=== PATIENT | female | born 1940 | race Asian ===

== ENCOUNTER 2017-12-16 18:40 | Inpatient (IN) | payer MEDICARE, OTHER ==
[2017-12-16 20:07] LABS: ADD MAN DIFF? NO
[2017-12-16 20:11] LABS: WHITE BLOOD COUNT 15.9 10^3/ul (4.8-10.8)
[2017-12-16 20:11] LABS: ABNORMAL IP MESSAGE 1; BASOPHIL # 0.1 10^3/ul (0.0-0.1); BASOPHILS % 0.6 % (0.0-2.0); EOSINOPHILS # 0.3 10^3/ul (0.0-0.5); EOSINOPHILS % 1.6 % (0.0-7.0); HEMATOCRIT 32.4 % (37.0-47.0); HEMOGLOBIN 10.1 g/dl (12.0-16.0); LYMPHOCYTES # 6.1 10^3/ul (0.8-2.9); LYMPHOCYTES % 38.4 % (15.0-51.0); MEAN CORPUSCULAR HEMOGLOBIN 28.2 pg (29.0-33.0); MEAN CORPUSCULAR HGB CONC 31.2 g/dl (32.0-37.0); MEAN CORPUSCULAR VOLUME 90.5 fl (82.0-101.0); MEAN PLATELET VOLUME 10.1 fl (7.4-10.4); MONOCYTES % 6.5 % (0.0-11.0); NEUTROPHIL # 8.3 10^3/ul (1.6-7.5); NEUTROPHILS % 52.5 % (39.0-77.0); PLATELET COUNT 408 10^3/UL (140-415); RED BLOOD COUNT 3.58 10^6/ul (4.20-5.40); RED CELL DISTRIBUTION WIDTH 14.3 % (11.5-14.5)
[2017-12-16 20:22] LABS: POSITIVE DIFF @See below
[2017-12-16 20:26] LABS: ALANINE AMINOTRANSFERASE 20 IU/L (13-69); ALBUMIN 2.9 g/dl (3.3-4.9); ALBUMIN/GLOBULIN RATIO 0.76; ALKALINE PHOSPHATASE 568 IU/L (42-121); ANION GAP 12 (8-16); ASPARTATE AMINO TRANSFERASE 42 IU/L (15-46); BILIRUBIN,INDIRECT 0.1 mg/dl (0-1.1); BILIRUBIN,TOTAL 0.1 mg/dl (0.2-1.3); BLOOD UREA NITROGEN 8 mg/dl (7-20); CALCIUM 8.3 mg/dl (8.4-10.2); CARBON DIOXIDE 29 mmol/L (21-31); CHLORIDE 105 mmol/L (97-110); CREATININE 0.73 mg/dl (0.44-1.00); GLUCOSE 134 mg/dl (70-220); INR 1.07; LIPASE 57 U/L (23-300); POTASSIUM 3.5 mmol/L (3.5-5.1); PT RATIO 1.1; SODIUM 142 mmol/L (135-144); TOTAL PROTEIN 6.7 g/dl (6.1-8.1)
[2017-12-16 20:27] LABS: PARTIAL THROMBOPLASTIN TIME 28.9 Sec (25.0-35.0)
[2017-12-16 20:28] LABS: LACTIC ACID 2.1 mmol/L (0.5-2.0)
[2017-12-16 20:29] LABS: ADD UMIC YES; UR ASCORBIC ACID NEGATIVE (NEGATIVE); UR BILIRUBIN (Dip) NEGATIVE (NEGATIVE); UR BLOOD (Dip) 1+ mg/dL (NEGATIVE); UR CLARITY CLEAR (CLEAR); UR COLOR YELLOW (YELLOW); UR GLUCOSE (Dip) NEGATIVE (NEGATIVE); UR KETONES (Dip) NEGATIVE (NEGATIVE); UR LEUKOCYTE ESTERASE (Dip) NEGATIVE Leu/ul (NEGATIVE); UR NITRITE (Dip) NEGATIVE (NEGATIVE); UR RBC 5 /HPF (0-5); UR SPECIFIC GRAVITY (Dip) 1.008 (1.003-1.030); UR TOTAL PROTEIN (Dip) NEGATIVE (NEGATIVE); UR UROBILINOGEN (Dip) NEGATIVE (NEGATIVE); UR WBC 2 /HPF (0-5)
[2017-12-16] MEDS: SODIUM CHLORIDE 0.9% 1L BAG IV* (20:35)
[2017-12-16 20:38] LABS: TROPONIN-I < 0.012 ng/ml (0.00-0.12)
[2017-12-16] MEDS: CEFEPIME 1GM/50 ML (PMX) 50 ML IVPB (20:48)
[2017-12-16] MEDS: IBUPROFEN 600 MG TAB PO (20:49)
[2017-12-16] MEDS: VANCOMYCIN 1 GM (PMX) 250 ML IVPB (21:06)
[2017-12-16 21:42] LABS: LACTIC ACID 1.3 mmol/L (0.5-2.0)
[2017-12-17] MEDS ORDERED: ACETAMINOPHEN 325 MG TAB PO
[2017-12-17] MEDS: HYDROCODONE/APAP (5/325) TAB PO
[2017-12-17] MEDS ORDERED: BISACODYL (EC) 5 MG TAB PO
[2017-12-17] MEDS ORDERED: VANCOMYCIN IV PER PHARMACY XX
[2017-12-17 00:54] LABS: LACTIC ACID 0.8 mmol/L (0.5-2.0)
[2017-12-17] MEDS ORDERED: DEXTROSE 50% 50 ML SYRINGE IV ×2 (01:00)
[2017-12-17] MEDS ORDERED: GLUCAGON 1 MG INJ IM (01:00)
[2017-12-17] MEDS ORDERED: GLUCOSE GEL 15 GRAM TUBE PO ×2 (01:00)
[2017-12-17] MEDS ORDERED: GLUCOSE GEL 15 GRAM TUBE BUCCAL (01:00)
[2017-12-17] MEDS ORDERED: ACETAMINOPHEN 500 MG TAB PO ×2 (01:00)
[2017-12-17] MEDS: ACCU-CHEK XX (02:00)
[2017-12-17] MEDS: PANTOPRAZOLE (EC) 40 MG TAB PO (06:04)
[2017-12-17 06:42] LABS: ADD MAN DIFF? NO
[2017-12-17 06:49] LABS: ABNORMAL IP MESSAGE 1; BASOPHIL # 0.1 10^3/ul (0.0-0.1); BASOPHILS % 0.8 % (0.0-2.0); EOSINOPHILS # 0.3 10^3/ul (0.0-0.5); EOSINOPHILS % 1.9 % (0.0-7.0); HEMATOCRIT 32.9 % (37.0-47.0); HEMOGLOBIN 10.1 g/dl (12.0-16.0); LYMPHOCYTES # 5.8 10^3/ul (0.8-2.9); MEAN CORPUSCULAR HEMOGLOBIN 28.1 pg (29.0-33.0); MEAN CORPUSCULAR HGB CONC 30.7 g/dl (32.0-37.0); MEAN CORPUSCULAR VOLUME 91.6 fl (82.0-101.0); MEAN PLATELET VOLUME 10.4 fl (7.4-10.4); MONOCYTE # 0.8 10^3/ul (0.3-0.9); MONOCYTES % 5.8 % (0.0-11.0); NEUTROPHIL # 7.1 10^3/ul (1.6-7.5); NEUTROPHILS % 50.2 % (39.0-77.0); PLATELET COUNT 364 10^3/UL (140-415); RED BLOOD COUNT 3.59 10^6/ul (4.20-5.40); RED CELL DISTRIBUTION WIDTH 14.4 % (11.5-14.5)
[2017-12-17 06:54] LABS: POSITIVE DIFF @See below
[2017-12-17 07:13] LABS: PROTIME 14.4 Sec (11.9-14.9); PT RATIO 1.1
[2017-12-17 07:50] LABS: ALANINE AMINOTRANSFERASE 19 IU/L (13-69); ALBUMIN 2.8 g/dl (3.3-4.9); ALBUMIN/GLOBULIN RATIO 0.73; ALKALINE PHOSPHATASE 518 IU/L (42-121); ANION GAP 14 (8-16); ASPARTATE AMINO TRANSFERASE 40 IU/L (15-46); BILIRUBIN,INDIRECT 0.1 mg/dl (0-1.1); BILIRUBIN,TOTAL 0.1 mg/dl (0.2-1.3); BLOOD UREA NITROGEN 8 mg/dl (7-20); CALCIUM 8.4 mg/dl (8.4-10.2); CARBON DIOXIDE 27 mmol/L (21-31); CHLORIDE 108 mmol/L (97-110); CREATININE 0.68 mg/dl (0.44-1.00); GLUCOSE 152 mg/dl (70-220); POTASSIUM 3.2 mmol/L (3.5-5.1); SODIUM 146 mmol/L (135-144); TOTAL PROTEIN 6.6 g/dl (6.1-8.1)
[2017-12-17] MEDS: INSULIN ASPART [NOVOLOG] 3 ML PEN SC ×4 (08:00→20:33)
[2017-12-17] MEDS: GABAPENTIN 300 MG CAP PO ×3 (08:12→20:32)
[2017-12-17] MEDS: FOLIC ACID 1 MG TAB PO (08:12)
[2017-12-17] MEDS: MAGNESIUM HYDROXIDE 30ML CUP PO (08:12)
[2017-12-17] MEDS: FERROUS SULFATE (EC) 325 MG TAB PO ×2 (08:12→20:33)
[2017-12-17] MEDS: VANCOMYCIN 1 GM 250 ML IVPB ×2 (08:12→19:59)
[2017-12-17] MEDS: NACL 3% FOR INHALATION 15 ML NEBU NEB (11:30)
[2017-12-17] MEDS: DEXTROSE 5% 1,000 ML IV (11:30)
[2017-12-17] MEDS: POTASSIUM CHLORIDE (SR) 20 MEQ TAB PO (12:51)
[2017-12-17] MEDS: DEXTROSE 5% 500 ML IV ×2 (14:25→23:18)
[2017-12-18] MEDS: ACCU-CHEK XX (02:00)
[2017-12-18] MEDS: DEXTROSE 5% 500 ML IV (05:45)
[2017-12-18] MEDS: PANTOPRAZOLE (EC) 40 MG TAB PO (05:46)
[2017-12-18 07:52] LABS: ADD MAN DIFF? NO
[2017-12-18 08:02] LABS: WHITE BLOOD COUNT 12.8 10^3/ul (4.8-10.8)
[2017-12-18 08:02] LABS: ABNORMAL IP MESSAGE 1; BASOPHIL # 0.1 10^3/ul (0.0-0.1); BASOPHILS % 0.8 % (0.0-2.0); EOSINOPHILS # 0.3 10^3/ul (0.0-0.5); EOSINOPHILS % 2.7 % (0.0-7.0); HEMATOCRIT 33.7 % (37.0-47.0); HEMOGLOBIN 10.5 g/dl (12.0-16.0); LYMPHOCYTES % 39.3 % (15.0-51.0); MEAN CORPUSCULAR HEMOGLOBIN 28.2 pg (29.0-33.0); MEAN CORPUSCULAR HGB CONC 31.2 g/dl (32.0-37.0); MEAN CORPUSCULAR VOLUME 90.6 fl (82.0-101.0); MEAN PLATELET VOLUME 10.2 fl (7.4-10.4); MONOCYTE # 0.9 10^3/ul (0.3-0.9); MONOCYTES % 6.8 % (0.0-11.0); NEUTROPHIL # 6.4 10^3/ul (1.6-7.5); NEUTROPHILS % 50.1 % (39.0-77.0); PLATELET COUNT 351 10^3/UL (140-415); RED BLOOD COUNT 3.72 10^6/ul (4.20-5.40); RED CELL DISTRIBUTION WIDTH 14.3 % (11.5-14.5)
[2017-12-18 08:05] LABS: POSITIVE DIFF @See below
[2017-12-18 08:22] LABS: INR 1.02; PROTIME 13.5 Sec (11.9-14.9); PT RATIO 1.1
[2017-12-18 08:23] LABS: ALANINE AMINOTRANSFERASE 22 IU/L (13-69); ALBUMIN 2.8 g/dl (3.3-4.9); ALBUMIN/GLOBULIN RATIO 0.73; ALKALINE PHOSPHATASE 498 IU/L (42-121); ANION GAP 13 (8-16); ASPARTATE AMINO TRANSFERASE 38 IU/L (15-46); BILIRUBIN,INDIRECT 0.2 mg/dl (0-1.1); BILIRUBIN,TOTAL 0.2 mg/dl (0.2-1.3); BLOOD UREA NITROGEN 6 mg/dl (7-20); CALCIUM 8.5 mg/dl (8.4-10.2); CARBON DIOXIDE 28 mmol/L (21-31); CHLORIDE 104 mmol/L (97-110); CREATININE 0.62 mg/dl (0.44-1.00); GLUCOSE 157 mg/dl (70-220); POTASSIUM 3.1 mmol/L (3.5-5.1); SODIUM 142 mmol/L (135-144); TOTAL PROTEIN 6.6 g/dl (6.1-8.1)
[2017-12-18 08:25] LABS: VANCOMYCIN,TROUGH 12.3 ug/ml (10.0-20.0)
[2017-12-18] MEDS: INSULIN ASPART [NOVOLOG] 3 ML PEN SC ×4 (08:34→20:41)
[2017-12-18] MEDS: FOLIC ACID 1 MG TAB PO (08:35)
[2017-12-18] MEDS: POTASSIUM CHLORIDE (SR) 20 MEQ TAB PO (08:35)
[2017-12-18] MEDS: GABAPENTIN 300 MG CAP PO ×3 (08:35→22:14)
[2017-12-18] MEDS: FERROUS SULFATE (EC) 325 MG TAB PO ×2 (08:35→22:12)
[2017-12-18] MEDS: MAGNESIUM HYDROXIDE 30ML CUP PO (08:36)
[2017-12-18 09:29] LABS: BLOOD UREA NITROGEN 6 mg/dl (7-20)
[2017-12-18 09:29] LABS: CREATININE 0.59 mg/dl (0.44-1.00)
[2017-12-18] MEDS: VANCOMYCIN 1 GM 250 ML IVPB ×2 (09:32→20:37)
[2017-12-18] MEDS: INFLUENZA VIRUS VACCINE 0.5 ML (DISPENSING) IM* (09:35)
[2017-12-18] MEDS: D5W-0.45 NACL + KCL 40 MEQ 1,000 ML IV (16:41)
[2017-12-19] MEDS: INSULIN ASPART [NOVOLOG] 3 ML PEN SC ×6 (01:38→21:26)
[2017-12-19] MEDS: PANTOPRAZOLE (EC) 40 MG TAB PO (05:11)
[2017-12-19] MEDS ORDERED: MEPERIDINE 25 MG INJ IV (06:00)
[2017-12-19] MEDS ORDERED: OXYCODONE/ACETAMINOPHEN (5/325) TAB PO ×2 (06:00)
[2017-12-19] MEDS ORDERED: ONDANSETRON 4 MG INJ IV (06:00)
[2017-12-19] MEDS ORDERED: hydrALAzine 20 MG INJ IV (06:00)
[2017-12-19] MEDS ORDERED: MIDAZOLAM 1 MG/ML 2 ML INJ IV (06:00)
[2017-12-19] MEDS ORDERED: DIPHENHYDRAMINE 50 MG INJ IV (06:00)
[2017-12-19] MEDS ORDERED: ATROPINE 1 MG/10 ML SYRINGE IV (06:00)
[2017-12-19] MEDS ORDERED: LABETALOL HCL 20MG INJ IV (06:00)
[2017-12-19] MEDS ORDERED: EPHEDrine SULFATE 50 MG/5 ML SYG IV (06:00)
[2017-12-19] MEDS ORDERED: morphine (1 MG/ML) 10ML SYRINGE IV ×3 (06:00)
[2017-12-19] MEDS ORDERED: FENTAnyl 50 MCG/ML VIAL IV ×2 (06:00)
[2017-12-19] MEDS ORDERED: HYDROmorphONE (0.2 MG/ML) 10ML SYG IV ×3 (06:00)
[2017-12-19 07:18] LABS: ADD MAN DIFF? NO
[2017-12-19 07:44] LABS: INR 1.03; PROTIME 13.6 Sec (11.9-14.9); PT RATIO 1.1
[2017-12-19 07:49] LABS: ANION GAP 14 (8-16); BLOOD UREA NITROGEN 8 mg/dl (7-20); CALCIUM 8.8 mg/dl (8.4-10.2); CARBON DIOXIDE 30 mmol/L (21-31); CHLORIDE 107 mmol/L (97-110); CREATININE 0.77 mg/dl (0.44-1.00); GLUCOSE 121 mg/dl (70-220); POTASSIUM 3.7 mmol/L (3.5-5.1); SODIUM 147 mmol/L (135-144)
[2017-12-19 08:12] LABS: WHITE BLOOD COUNT 16.5 10^3/ul (4.8-10.8)
[2017-12-19 08:12] LABS: ABNORMAL IP MESSAGE 1; BASOPHIL # 0.1 10^3/ul (0.0-0.1); BASOPHILS % 0.9 % (0.0-2.0); EOSINOPHILS # 0.5 10^3/ul (0.0-0.5); HEMATOCRIT 37.4 % (37.0-47.0); HEMOGLOBIN 11.6 g/dl (12.0-16.0); LYMPHOCYTES # 7.4 10^3/ul (0.8-2.9); LYMPHOCYTES % 45.2 % (15.0-51.0); MEAN CORPUSCULAR HEMOGLOBIN 28.2 pg (29.0-33.0); MEAN CORPUSCULAR VOLUME 90.8 fl (82.0-101.0); MEAN PLATELET VOLUME 10.3 fl (7.4-10.4); MONOCYTES % 6.3 % (0.0-11.0); NEUTROPHIL # 7.3 10^3/ul (1.6-7.5); NEUTROPHILS % 44.2 % (39.0-77.0); PLATELET COUNT 409 10^3/UL (140-415); RED BLOOD COUNT 4.12 10^6/ul (4.20-5.40); RED CELL DISTRIBUTION WIDTH 14.3 % (11.5-14.5)
[2017-12-19 08:13] LABS: POSITIVE DIFF @See below
[2017-12-19] MEDS: FOLIC ACID 1 MG TAB PO (08:53)
[2017-12-19] MEDS: FERROUS SULFATE (EC) 325 MG TAB PO ×2 (08:53→21:08)
[2017-12-19] MEDS: GABAPENTIN 300 MG CAP PO ×3 (08:53→21:08)
[2017-12-19] MEDS: POTASSIUM CHLORIDE (SR) 20 MEQ TAB PO (08:53)
[2017-12-19] MEDS: MAGNESIUM HYDROXIDE 30ML CUP PO (08:53)
[2017-12-19] MEDS: VANCOMYCIN 1 GM 250 ML IVPB (08:54)
[2017-12-19] MEDS: D5W-0.45 NACL + KCL 40 MEQ 1,000 ML IV (09:10)
[2017-12-19] MEDS ORDERED: PROPOFOL 20 ML (11:30)
[2017-12-19] MEDS ORDERED: MIDAZOLAM 1 MG/ML 2 ML INJ (11:30)
[2017-12-19] MEDS ORDERED: GLYCOPYRROLATE 0.4 MG INJ (11:30)
[2017-12-19] MEDS ORDERED: LIDOCAINE 2% (SDV) 5 ML INJ (11:30)
[2017-12-19] MEDS ORDERED: NEOSTIGMINE 3 MG/3 ML SYRINGE (11:30)
[2017-12-19] MEDS ORDERED: ROCURONIUM 50 MG INJ (11:30)
[2017-12-19] MEDS ORDERED: FENTAnyl 50 MCG/ML VIAL (11:30)
[2017-12-19] MEDS ORDERED: DEXAMETHASONE 4 MG/ML 1 ML INJ (11:31)
[2017-12-19] MEDS ORDERED: ONDANSETRON 4 MG INJ ×2 (11:31→12:57)
[2017-12-19] MEDS ORDERED: FLUMAZENIL 0.5 MG INJ (14:26)
[2017-12-19] MEDS ORDERED: CIPROFLOXACIN 400MG/D5W 200 ML IVPB (21:00)
[2017-12-19] MEDS: CIPROFLOXACIN 400MG/D5W 200 ML IVPB (21:06)
[2017-12-19] MEDS: CEFEPIME 2GM/50 ML (PMX) 50 ML IVPB (21:06)
[2017-12-20] MEDS: INSULIN ASPART [NOVOLOG] 3 ML PEN SC ×6 (01:33→21:00)
[2017-12-20] MEDS: PANTOPRAZOLE (EC) 40 MG TAB PO (04:01)
[2017-12-20] MEDS: D5W-0.45 NACL + KCL 40 MEQ 1,000 ML IV ×2 (05:58→18:30)
[2017-12-20] MEDS: FERROUS SULFATE (EC) 325 MG TAB PO ×2 (08:43→22:39)
[2017-12-20] MEDS: FOLIC ACID 1 MG TAB PO (08:43)
[2017-12-20] MEDS: GABAPENTIN 300 MG CAP PO ×3 (08:44→22:39)
[2017-12-20] MEDS: MAGNESIUM HYDROXIDE 30ML CUP PO (08:44)
[2017-12-20] MEDS: POTASSIUM CHLORIDE (SR) 20 MEQ TAB PO (08:44)
[2017-12-20] MEDS: CEFEPIME 2GM/50 ML (PMX) 50 ML IVPB ×2 (09:27→22:39)
[2017-12-20 12:36] LABS: ADD MAN DIFF? NO
[2017-12-20 12:44] LABS: WHITE BLOOD COUNT 13.9 10^3/ul (4.8-10.8)
[2017-12-20 12:44] LABS: BASOPHILS % 0.2 % (0.0-2.0); EOSINOPHILS % 0.1 % (0.0-7.0); HEMATOCRIT 32.3 % (37.0-47.0); HEMOGLOBIN 10.2 g/dl (12.0-16.0); LYMPHOCYTES # 4.6 10^3/ul (0.8-2.9); LYMPHOCYTES % 33.4 % (15.0-51.0); MEAN CORPUSCULAR HEMOGLOBIN 28.3 pg (29.0-33.0); MEAN CORPUSCULAR HGB CONC 31.6 g/dl (32.0-37.0); MEAN CORPUSCULAR VOLUME 89.5 fl (82.0-101.0); MEAN PLATELET VOLUME 9.9 fl (7.4-10.4); MONOCYTE # 0.8 10^3/ul (0.3-0.9); MONOCYTES % 5.8 % (0.0-11.0); NEUTROPHIL # 8.3 10^3/ul (1.6-7.5); NEUTROPHILS % 59.9 % (39.0-77.0); PLATELET COUNT 354 10^3/UL (140-415); RED BLOOD COUNT 3.61 10^6/ul (4.20-5.40); RED CELL DISTRIBUTION WIDTH 13.6 % (11.5-14.5)
[2017-12-20 13:01] LABS: ALANINE AMINOTRANSFERASE 22 IU/L (13-69); ALBUMIN 2.9 g/dl (3.3-4.9); ALBUMIN/GLOBULIN RATIO 0.74; ALKALINE PHOSPHATASE 499 IU/L (42-121); ANION GAP 15 (8-16); ASPARTATE AMINO TRANSFERASE 29 IU/L (15-46); BILIRUBIN,INDIRECT 0.1 mg/dl (0-1.1); BILIRUBIN,TOTAL 0.1 mg/dl (0.2-1.3); BLOOD UREA NITROGEN 11 mg/dl (7-20); CALCIUM 8.5 mg/dl (8.4-10.2); CARBON DIOXIDE 26 mmol/L (21-31); CHLORIDE 107 mmol/L (97-110); CREATININE 0.72 mg/dl (0.44-1.00); GLUCOSE 141 mg/dl (70-220); POTASSIUM 3.8 mmol/L (3.5-5.1); SODIUM 144 mmol/L (135-144); TOTAL PROTEIN 6.8 g/dl (6.1-8.1)
[2017-12-20] MEDS ORDERED: LIDOCAINE 1% (MDV) 20 ML INJ (15:42)
[2017-12-20] MEDS: SOD CHLORIDE 0.9% 100 ML (17:52)
[2017-12-20] MEDS: IOHEXOL 300MG/ML 150 ML BTL (17:52)
[2017-12-20 19:31] LABS: HEMOGLOBIN A1C 5.6 % (0-5.9)
[2017-12-20] MEDS ORDERED: ACCU-CHEK XX (20:05)
[2017-12-21] MEDS: ACCU-CHEK XX (02:00)
[2017-12-21] MEDS: PANTOPRAZOLE (EC) 40 MG TAB PO (05:38)
[2017-12-21] MEDS: D5W-0.45 NACL + KCL 40 MEQ 1,000 ML IV (05:39)
[2017-12-21 06:13] LABS: ADD MAN DIFF? NO
[2017-12-21 06:18] LABS: ABNORMAL IP MESSAGE 1; BASOPHIL # 0.1 10^3/ul (0.0-0.1); BASOPHILS % 0.8 % (0.0-2.0); EOSINOPHILS # 0.2 10^3/ul (0.0-0.5); EOSINOPHILS % 1.9 % (0.0-7.0); HEMATOCRIT 33.8 % (37.0-47.0); HEMOGLOBIN 10.4 g/dl (12.0-16.0); LYMPHOCYTES # 5.2 10^3/ul (0.8-2.9); LYMPHOCYTES % 41.8 % (15.0-51.0); MEAN CORPUSCULAR HEMOGLOBIN 27.8 pg (29.0-33.0); MEAN CORPUSCULAR HGB CONC 30.8 g/dl (32.0-37.0); MEAN CORPUSCULAR VOLUME 90.4 fl (82.0-101.0); MEAN PLATELET VOLUME 10.2 fl (7.4-10.4); MONOCYTES % 7.9 % (0.0-11.0); NEUTROPHIL # 5.9 10^3/ul (1.6-7.5); NEUTROPHILS % 47.4 % (39.0-77.0); PLATELET COUNT 373 10^3/UL (140-415); RED BLOOD COUNT 3.74 10^6/ul (4.20-5.40); RED CELL DISTRIBUTION WIDTH 13.9 % (11.5-14.5)
[2017-12-21 06:18] LABS: WHITE BLOOD COUNT 12.4 10^3/ul (4.8-10.8)
[2017-12-21 06:20] LABS: POSITIVE DIFF @See below
[2017-12-21 06:40] LABS: ALANINE AMINOTRANSFERASE 21 IU/L (13-69); ALBUMIN 3.1 g/dl (3.3-4.9); ALBUMIN/GLOBULIN RATIO 0.86; ALKALINE PHOSPHATASE 459 IU/L (42-121); ANION GAP 15 (8-16); ASPARTATE AMINO TRANSFERASE 52 IU/L (15-46); BLOOD UREA NITROGEN 10 mg/dl (7-20); CALCIUM 8.5 mg/dl (8.4-10.2); CARBON DIOXIDE 27 mmol/L (21-31); CHLORIDE 109 mmol/L (97-110); CREATININE 0.68 mg/dl (0.44-1.00); GLUCOSE 118 mg/dl (70-220); POTASSIUM 3.3 mmol/L (3.5-5.1); SODIUM 148 mmol/L (135-144); TOTAL PROTEIN 6.7 g/dl (6.1-8.1)
[2017-12-21 07:07] LABS: CARCINOEMBRYONIC ANTIGEN 1.8 ng/ml (0.0-5.0)
[2017-12-21 07:07] LABS: CANCER ANTIGEN 125 26.9 U/ml (0.0-35.0)
[2017-12-21] MEDS: INSULIN ASPART [NOVOLOG] 3 ML PEN SC ×4 (08:06→20:22)
[2017-12-21] MEDS: MAGNESIUM HYDROXIDE 30ML CUP PO (09:52)
[2017-12-21] MEDS: CEFEPIME 2GM/50 ML (PMX) 50 ML IVPB ×2 (09:52→20:23)
[2017-12-21] MEDS: POTASSIUM CHLORIDE (SR) 20 MEQ TAB PO (09:53)
[2017-12-21] MEDS: FOLIC ACID 1 MG TAB PO (09:53)
[2017-12-21] MEDS: FERROUS SULFATE (EC) 325 MG TAB PO ×2 (09:53→20:23)
[2017-12-21] MEDS: GABAPENTIN 300 MG CAP PO ×3 (09:53→20:23)
[2017-12-21] MEDS ORDERED: POTASSIUM CHLORIDE (SR) 20 MEQ TAB PO (14:30)
[2017-12-22] MEDS: ACCU-CHEK XX (01:05)
[2017-12-22] MEDS: D5W-0.45 NACL + KCL 40 MEQ 1,000 ML IV ×2 (03:12→09:12)
[2017-12-22 05:12] LABS: ADD MAN DIFF? NO
[2017-12-22 05:22] LABS: WHITE BLOOD COUNT 13.3 10^3/ul (4.8-10.8)
[2017-12-22 05:22] LABS: ABNORMAL IP MESSAGE 1; BASOPHIL # 0.1 10^3/ul (0.0-0.1); EOSINOPHILS # 0.3 10^3/ul (0.0-0.5); EOSINOPHILS % 2.4 % (0.0-7.0); HEMATOCRIT 33.6 % (37.0-47.0); HEMOGLOBIN 10.7 g/dl (12.0-16.0); LYMPHOCYTES % 45.1 % (15.0-51.0); MEAN CORPUSCULAR HEMOGLOBIN 28.8 pg (29.0-33.0); MEAN CORPUSCULAR HGB CONC 31.8 g/dl (32.0-37.0); MEAN CORPUSCULAR VOLUME 90.6 fl (82.0-101.0); MEAN PLATELET VOLUME 10.1 fl (7.4-10.4); MONOCYTES % 7.4 % (0.0-11.0); NEUTROPHIL # 5.9 10^3/ul (1.6-7.5); NEUTROPHILS % 43.9 % (39.0-77.0); PLATELET COUNT 384 10^3/UL (140-415); RED BLOOD COUNT 3.71 10^6/ul (4.20-5.40); RED CELL DISTRIBUTION WIDTH 14.3 % (11.5-14.5)
[2017-12-22 06:09] LABS: ALANINE AMINOTRANSFERASE 16 IU/L (13-69); ALBUMIN 3.2 g/dl (3.3-4.9); ALBUMIN/GLOBULIN RATIO 0.84; ALKALINE PHOSPHATASE 490 IU/L (42-121); ANION GAP 14 (8-16); ASPARTATE AMINO TRANSFERASE 53 IU/L (15-46); BLOOD UREA NITROGEN 10 mg/dl (7-20); CARBON DIOXIDE 28 mmol/L (21-31); CHLORIDE 107 mmol/L (97-110); CREATININE 0.83 mg/dl (0.44-1.00); GLUCOSE 137 mg/dl (70-220); POTASSIUM 3.9 mmol/L (3.5-5.1); SODIUM 145 mmol/L (135-144)
[2017-12-22 06:12] LABS: POSITIVE DIFF @See below
[2017-12-22] MEDS: PANTOPRAZOLE (EC) 40 MG TAB PO (06:29)
[2017-12-22] MEDS: FOLIC ACID 1 MG TAB PO (08:28)
[2017-12-22] MEDS: INSULIN ASPART [NOVOLOG] 3 ML PEN SC ×4 (08:28→20:41)
[2017-12-22] MEDS: MAGNESIUM HYDROXIDE 30ML CUP PO (08:28)
[2017-12-22] MEDS: FERROUS SULFATE (EC) 325 MG TAB PO ×2 (08:28→20:42)
[2017-12-22] MEDS: GABAPENTIN 300 MG CAP PO ×3 (08:28→20:42)
[2017-12-22] MEDS: POTASSIUM CHLORIDE (SR) 20 MEQ TAB PO (08:31)
[2017-12-22] MEDS: CEFEPIME 2GM/50 ML (PMX) 50 ML IVPB ×2 (08:32→20:42)
[2017-12-23] MEDS: ACCU-CHEK XX (01:13)
[2017-12-23] MEDS: D5W-0.45 NACL + KCL 40 MEQ 1,000 ML IV (04:38)
[2017-12-23] MEDS: PANTOPRAZOLE (EC) 40 MG TAB PO (05:27)
[2017-12-23 06:06] LABS: ADD MAN DIFF? NO
[2017-12-23 06:14] LABS: ABNORMAL IP MESSAGE 1; BASOPHIL # 0.1 10^3/ul (0.0-0.1); EOSINOPHILS # 0.4 10^3/ul (0.0-0.5); EOSINOPHILS % 2.8 % (0.0-7.0); HEMATOCRIT 36.1 % (37.0-47.0); HEMOGLOBIN 11.2 g/dl (12.0-16.0); LYMPHOCYTES # 5.5 10^3/ul (0.8-2.9); LYMPHOCYTES % 41.3 % (15.0-51.0); MEAN CORPUSCULAR HEMOGLOBIN 27.9 pg (29.0-33.0); MEAN PLATELET VOLUME 10.2 fl (7.4-10.4); MONOCYTE # 0.9 10^3/ul (0.3-0.9); MONOCYTES % 6.9 % (0.0-11.0); NEUTROPHIL # 6.4 10^3/ul (1.6-7.5); NEUTROPHILS % 47.5 % (39.0-77.0); PLATELET COUNT 389 10^3/UL (140-415); RED BLOOD COUNT 4.01 10^6/ul (4.20-5.40); RED CELL DISTRIBUTION WIDTH 14.2 % (11.5-14.5)
[2017-12-23 06:14] LABS: WHITE BLOOD COUNT 13.3 10^3/ul (4.8-10.8)
[2017-12-23 06:33] LABS: POSITIVE DIFF @See below
[2017-12-23 07:04] LABS: ANION GAP 16 (8-16); BLOOD UREA NITROGEN 11 mg/dl (7-20); CALCIUM 9.3 mg/dl (8.4-10.2); CARBON DIOXIDE 28 mmol/L (21-31); CHLORIDE 105 mmol/L (97-110); CREATININE 0.71 mg/dl (0.44-1.00); GLUCOSE 162 mg/dl (70-220); POTASSIUM 4.1 mmol/L (3.5-5.1); SODIUM 145 mmol/L (135-144)
[2017-12-23] MEDS: FERROUS SULFATE (EC) 325 MG TAB PO ×2 (08:22→20:37)
[2017-12-23] MEDS: FOLIC ACID 1 MG TAB PO (08:22)
[2017-12-23] MEDS: GABAPENTIN 300 MG CAP PO ×3 (08:22→20:37)
[2017-12-23] MEDS: POTASSIUM CHLORIDE (SR) 20 MEQ TAB PO (08:22)
[2017-12-23] MEDS: INSULIN ASPART [NOVOLOG] 3 ML PEN SC ×4 (08:23→20:36)
[2017-12-23] MEDS: MAGNESIUM HYDROXIDE 30ML CUP PO (08:27)
[2017-12-23] MEDS: CEFEPIME 2GM/50 ML (PMX) 50 ML IVPB ×2 (08:27→20:37)
[2017-12-24] MEDS: SOD CHLORIDE 0.45% 1,000 ML IV ×2 (00:02→16:38)
[2017-12-24] MEDS: ACCU-CHEK XX (01:32)
[2017-12-24] MEDS: PANTOPRAZOLE (EC) 40 MG TAB PO (05:54)
[2017-12-24 05:57] LABS: ADD MAN DIFF? NO
[2017-12-24 06:06] LABS: ABNORMAL IP MESSAGE 1; BASOPHIL # 0.1 10^3/ul (0.0-0.1); BASOPHILS % 0.9 % (0.0-2.0); EOSINOPHILS # 0.4 10^3/ul (0.0-0.5); EOSINOPHILS % 2.9 % (0.0-7.0); HEMOGLOBIN 11.8 g/dl (12.0-16.0); LYMPHOCYTES # 6.4 10^3/ul (0.8-2.9); LYMPHOCYTES % 42.5 % (15.0-51.0); MEAN CORPUSCULAR HEMOGLOBIN 27.9 pg (29.0-33.0); MEAN CORPUSCULAR HGB CONC 31.1 g/dl (32.0-37.0); MEAN CORPUSCULAR VOLUME 89.8 fl (82.0-101.0); MEAN PLATELET VOLUME 10.2 fl (7.4-10.4); MONOCYTE # 0.9 10^3/ul (0.3-0.9); MONOCYTES % 6.2 % (0.0-11.0); NEUTROPHIL # 7.1 10^3/ul (1.6-7.5); NEUTROPHILS % 46.9 % (39.0-77.0); PLATELET COUNT 408 10^3/UL (140-415); RED BLOOD COUNT 4.23 10^6/ul (4.20-5.40); RED CELL DISTRIBUTION WIDTH 14.5 % (11.5-14.5)
[2017-12-24 06:20] LABS: ALANINE AMINOTRANSFERASE 29 IU/L (13-69); ALBUMIN 3.4 g/dl (3.3-4.9); ALBUMIN/GLOBULIN RATIO 0.85; ALKALINE PHOSPHATASE 596 IU/L (42-121); ANION GAP 16 (8-16); ASPARTATE AMINO TRANSFERASE 69 IU/L (15-46); BILIRUBIN,INDIRECT 0.2 mg/dl (0-1.1); BILIRUBIN,TOTAL 0.2 mg/dl (0.2-1.3); BLOOD UREA NITROGEN 11 mg/dl (7-20); CALCIUM 9.3 mg/dl (8.4-10.2); CARBON DIOXIDE 25 mmol/L (21-31); CHLORIDE 106 mmol/L (97-110); CREATININE 0.72 mg/dl (0.44-1.00); GLUCOSE 141 mg/dl (70-220); POTASSIUM 4.4 mmol/L (3.5-5.1); SODIUM 143 mmol/L (135-144); TOTAL PROTEIN 7.4 g/dl (6.1-8.1)
[2017-12-24 06:32] LABS: POSITIVE DIFF @See below
[2017-12-24] MEDS: INSULIN ASPART [NOVOLOG] 3 ML PEN SC ×4 (08:00→20:19)
[2017-12-24] MEDS: MAGNESIUM HYDROXIDE 30ML CUP PO ×2 (08:45→13:56)
[2017-12-24] MEDS: POTASSIUM CHLORIDE (SR) 20 MEQ TAB PO (08:46)
[2017-12-24] MEDS: FOLIC ACID 1 MG TAB PO (08:46)
[2017-12-24] MEDS: GABAPENTIN 300 MG CAP PO ×3 (08:46→20:19)
[2017-12-24] MEDS: FERROUS SULFATE (EC) 325 MG TAB PO ×2 (08:46→20:19)
[2017-12-24] MEDS: CEFEPIME 2GM/50 ML (PMX) 50 ML IVPB ×2 (08:47→21:27)
[2017-12-25] MEDS: ACCU-CHEK XX (02:00)
[2017-12-25] MEDS: PANTOPRAZOLE (EC) 40 MG TAB PO (06:13)
[2017-12-25 06:38] LABS: ADD MAN DIFF? NO
[2017-12-25 06:49] LABS: ABNORMAL IP MESSAGE 1; BASOPHIL # 0.2 10^3/ul (0.0-0.1); BASOPHILS % 1.2 % (0.0-2.0); EOSINOPHILS # 0.4 10^3/ul (0.0-0.5); EOSINOPHILS % 2.6 % (0.0-7.0); HEMATOCRIT 38.3 % (37.0-47.0); HEMOGLOBIN 11.9 g/dl (12.0-16.0); LYMPHOCYTES # 6.2 10^3/ul (0.8-2.9); LYMPHOCYTES % 42.6 % (15.0-51.0); MEAN CORPUSCULAR HEMOGLOBIN 28.1 pg (29.0-33.0); MEAN CORPUSCULAR HGB CONC 31.1 g/dl (32.0-37.0); MEAN CORPUSCULAR VOLUME 90.5 fl (82.0-101.0); MEAN PLATELET VOLUME 10.4 fl (7.4-10.4); MONOCYTES % 6.6 % (0.0-11.0); NEUTROPHIL # 6.7 10^3/ul (1.6-7.5); NEUTROPHILS % 46.4 % (39.0-77.0); PLATELET COUNT 421 10^3/UL (140-415); RED BLOOD COUNT 4.23 10^6/ul (4.20-5.40); RED CELL DISTRIBUTION WIDTH 14.7 % (11.5-14.5)
[2017-12-25 06:49] LABS: WHITE BLOOD COUNT 14.5 10^3/ul (4.8-10.8)
[2017-12-25 07:01] LABS: POSITIVE DIFF @See below
[2017-12-25 07:27] LABS: ALANINE AMINOTRANSFERASE 29 IU/L (13-69); ALBUMIN 3.5 g/dl (3.3-4.9); ALBUMIN/GLOBULIN RATIO 0.87; ALKALINE PHOSPHATASE 646 IU/L (42-121); ANION GAP 14 (8-16); ASPARTATE AMINO TRANSFERASE 73 IU/L (15-46); BILIRUBIN,INDIRECT 0.2 mg/dl (0-1.1); BILIRUBIN,TOTAL 0.2 mg/dl (0.2-1.3); BLOOD UREA NITROGEN 14 mg/dl (7-20); CALCIUM 9.3 mg/dl (8.4-10.2); CARBON DIOXIDE 25 mmol/L (21-31); CHLORIDE 106 mmol/L (97-110); CREATININE 0.77 mg/dl (0.44-1.00); GLUCOSE 144 mg/dl (70-220); POTASSIUM 4.3 mmol/L (3.5-5.1); SODIUM 141 mmol/L (135-144); TOTAL PROTEIN 7.5 g/dl (6.1-8.1)
[2017-12-25] MEDS: INSULIN ASPART [NOVOLOG] 3 ML PEN SC ×4 (08:00→21:00)
[2017-12-25] MEDS: SOD CHLORIDE 0.45% 1,000 ML IV (09:56)
[2017-12-25] MEDS: MAGNESIUM HYDROXIDE 30ML CUP PO (10:28)
[2017-12-25] MEDS: FERROUS SULFATE (EC) 325 MG TAB PO ×2 (10:28→21:31)
[2017-12-25] MEDS: FOLIC ACID 1 MG TAB PO (10:28)
[2017-12-25] MEDS: POTASSIUM CHLORIDE (SR) 20 MEQ TAB PO (10:28)
[2017-12-25] MEDS: GABAPENTIN 300 MG CAP PO ×3 (10:28→21:30)
[2017-12-25] MEDS: CEFEPIME 2GM/50 ML (PMX) 50 ML IVPB ×2 (10:40→21:30)
[2017-12-26] MEDS: ACCU-CHEK XX (02:00)
[2017-12-26] MEDS: SOD CHLORIDE 0.45% 1,000 ML IV ×2 (02:00→06:08)
[2017-12-26] MEDS: PANTOPRAZOLE (EC) 40 MG TAB PO (05:54)
[2017-12-26] MEDS: INSULIN ASPART [NOVOLOG] 3 ML PEN SC ×4 (08:00→20:43)
[2017-12-26] MEDS: MAGNESIUM HYDROXIDE 30ML CUP PO (08:31)
[2017-12-26] MEDS: FERROUS SULFATE (EC) 325 MG TAB PO ×2 (08:31→20:42)
[2017-12-26] MEDS: POTASSIUM CHLORIDE (SR) 20 MEQ TAB PO (08:31)
[2017-12-26] MEDS: FOLIC ACID 1 MG TAB PO (08:31)
[2017-12-26] MEDS: GABAPENTIN 300 MG CAP PO ×3 (08:31→20:42)
[2017-12-26] MEDS: CEFEPIME 2GM/50 ML (PMX) 50 ML IVPB ×2 (09:08→20:42)
[2017-12-26] MEDS: PROPOFOL 0 ML (13:12)
[2017-12-26] MEDS: FENTAnyl 50 MCG/ML VIAL (13:12)
[2017-12-26] MEDS: MIDAZOLAM 1 MG/ML 2 ML INJ (13:15)
[2017-12-26] MEDS: LIDOCAINE 1% (MDV) 10 ML INJ ×2 (13:20)
[2017-12-26] MEDS ORDERED: ONDANSETRON 4 MG INJ IV (14:00)
[2017-12-26] MEDS ORDERED: FENTAnyl 50 MCG/ML VIAL IV (14:00)
[2017-12-26] MEDS: HYDROmorphONE (0.2 MG/ML) 10ML SYG IV (14:09)
[2017-12-26] MEDS: ONDANSETRON 4 MG INJ IV (17:40)
[2017-12-27] MEDS: ACCU-CHEK XX (02:00)
[2017-12-27] MEDS: SOD CHLORIDE 0.45% 1,000 ML IV ×2 (04:00→20:37)
[2017-12-27] MEDS: PANTOPRAZOLE (EC) 40 MG TAB PO (05:50)
[2017-12-27 06:49] LABS: ADD MAN DIFF? NO
[2017-12-27 06:53] LABS: BASOPHIL # 0.1 10^3/ul (0.0-0.1); BASOPHILS % 0.9 % (0.0-2.0); EOSINOPHILS # 0.2 10^3/ul (0.0-0.5); EOSINOPHILS % 1.5 % (0.0-7.0); HEMATOCRIT 35.5 % (37.0-47.0); HEMOGLOBIN 11.1 g/dl (12.0-16.0); LYMPHOCYTES # 4.3 10^3/ul (0.8-2.9); LYMPHOCYTES % 33.8 % (15.0-51.0); MEAN CORPUSCULAR HEMOGLOBIN 28.3 pg (29.0-33.0); MEAN CORPUSCULAR HGB CONC 31.3 g/dl (32.0-37.0); MEAN CORPUSCULAR VOLUME 90.6 fl (82.0-101.0); MEAN PLATELET VOLUME 10.3 fl (7.4-10.4); MONOCYTE # 1.3 10^3/ul (0.3-0.9); MONOCYTES % 10.1 % (0.0-11.0); NEUTROPHIL # 6.8 10^3/ul (1.6-7.5); NEUTROPHILS % 53.2 % (39.0-77.0); PLATELET COUNT 348 10^3/UL (140-415); RED BLOOD COUNT 3.92 10^6/ul (4.20-5.40); RED CELL DISTRIBUTION WIDTH 14.6 % (11.5-14.5)
[2017-12-27 06:53] LABS: WHITE BLOOD COUNT 12.8 10^3/ul (4.8-10.8)
[2017-12-27] MEDS: HYDROCODONE/APAP (5/325) TAB PO ×3 (06:56→19:52)
[2017-12-27 07:09] LABS: ALANINE AMINOTRANSFERASE 35 IU/L (13-69); ALBUMIN 3.3 g/dl (3.3-4.9); ALBUMIN/GLOBULIN RATIO 0.84; ALKALINE PHOSPHATASE 642 IU/L (42-121); ANION GAP 14 (8-16); ASPARTATE AMINO TRANSFERASE 73 IU/L (15-46); BILIRUBIN,INDIRECT 0.3 mg/dl (0-1.1); BILIRUBIN,TOTAL 0.3 mg/dl (0.2-1.3); BLOOD UREA NITROGEN 11 mg/dl (7-20); CALCIUM 9.1 mg/dl (8.4-10.2); CARBON DIOXIDE 27 mmol/L (21-31); CHLORIDE 104 mmol/L (97-110); CREATININE 0.65 mg/dl (0.44-1.00); GLUCOSE 125 mg/dl (70-220); POTASSIUM 4.2 mmol/L (3.5-5.1); SODIUM 141 mmol/L (135-144); TOTAL PROTEIN 7.2 g/dl (6.1-8.1)
[2017-12-27] MEDS: INSULIN ASPART [NOVOLOG] 3 ML PEN SC ×4 (08:00→20:28)
[2017-12-27] MEDS: GABAPENTIN 300 MG CAP PO ×3 (08:26→20:28)
[2017-12-27] MEDS: MAGNESIUM HYDROXIDE 30ML CUP PO (08:26)
[2017-12-27] MEDS: POTASSIUM CHLORIDE (SR) 20 MEQ TAB PO (08:27)
[2017-12-27] MEDS: FOLIC ACID 1 MG TAB PO (08:27)
[2017-12-27] MEDS: CEFEPIME 2GM/50 ML (PMX) 50 ML IVPB ×2 (08:31→20:28)
[2017-12-27] MEDS: FERROUS SULFATE (EC) 325 MG TAB PO ×2 (08:31→20:28)
[2017-12-28] MEDS: ACCU-CHEK XX (02:00)
[2017-12-28] MEDS: PANTOPRAZOLE (EC) 40 MG TAB PO (06:33)
[2017-12-28] MEDS: INSULIN ASPART [NOVOLOG] 3 ML PEN SC ×4 (08:00→21:00)
[2017-12-28] MEDS: CEFEPIME 2GM/50 ML (PMX) 50 ML IVPB ×2 (08:34→21:26)
[2017-12-28] MEDS: GABAPENTIN 300 MG CAP PO ×3 (08:35→21:26)
[2017-12-28] MEDS: FERROUS SULFATE (EC) 325 MG TAB PO ×2 (08:35→21:26)
[2017-12-28] MEDS: FOLIC ACID 1 MG TAB PO (08:35)
[2017-12-28] MEDS: MAGNESIUM HYDROXIDE 30ML CUP PO (08:35)
[2017-12-28] MEDS: POTASSIUM CHLORIDE (SR) 20 MEQ TAB PO (08:35)
[2017-12-28] MEDS: HYDROCODONE/APAP (5/325) TAB PO ×2 (08:40→19:03)
[2017-12-28 09:04] LABS: ADD MAN DIFF? NO
[2017-12-28 09:07] LABS: WHITE BLOOD COUNT 16.8 10^3/ul (4.8-10.8)
[2017-12-28 09:07] LABS: ABNORMAL IP MESSAGE 1; BASOPHIL # 0.1 10^3/ul (0.0-0.1); BASOPHILS % 0.7 % (0.0-2.0); EOSINOPHILS # 0.1 10^3/ul (0.0-0.5); EOSINOPHILS % 0.7 % (0.0-7.0); HEMATOCRIT 37.4 % (37.0-47.0); HEMOGLOBIN 11.4 g/dl (12.0-16.0); LYMPHOCYTES # 5.2 10^3/ul (0.8-2.9); LYMPHOCYTES % 30.6 % (15.0-51.0); MEAN CORPUSCULAR HEMOGLOBIN 27.8 pg (29.0-33.0); MEAN CORPUSCULAR HGB CONC 30.5 g/dl (32.0-37.0); MEAN CORPUSCULAR VOLUME 91.2 fl (82.0-101.0); MEAN PLATELET VOLUME 10.4 fl (7.4-10.4); MONOCYTE # 1.7 10^3/ul (0.3-0.9); MONOCYTES % 10.3 % (0.0-11.0); NEUTROPHIL # 9.6 10^3/ul (1.6-7.5); NEUTROPHILS % 57.1 % (39.0-77.0); PLATELET COUNT 334 10^3/UL (140-415); RED CELL DISTRIBUTION WIDTH 14.5 % (11.5-14.5)
[2017-12-28 09:17] LABS: POSITIVE DIFF @See below
[2017-12-28 09:25] LABS: LACTIC ACID 0.9 mmol/L (0.5-2.0)
[2017-12-28 09:26] LABS: PHOSPHORUS 3.8 mg/dl (2.5-4.9)
[2017-12-28 09:26] LABS: MAGNESIUM 1.8 mg/dl (1.7-2.5)
[2017-12-28 09:38] LABS: INR 1.05; PARTIAL THROMBOPLASTIN TIME 31.5 Sec (25.0-35.0); PROTIME 13.8 Sec (11.9-14.9); PT RATIO 1.1
[2017-12-28 09:39] LABS: ALANINE AMINOTRANSFERASE 30 IU/L (13-69); ALBUMIN 3.2 g/dl (3.3-4.9); ALBUMIN/GLOBULIN RATIO 0.86; ALKALINE PHOSPHATASE 483 IU/L (42-121); ANION GAP 16 (8-16); ASPARTATE AMINO TRANSFERASE 33 IU/L (15-46); BILIRUBIN,INDIRECT 0.4 mg/dl (0-1.1); BILIRUBIN,TOTAL 0.4 mg/dl (0.2-1.3); BLOOD UREA NITROGEN 13 mg/dl (7-20); CALCIUM 9.2 mg/dl (8.4-10.2); CARBON DIOXIDE 27 mmol/L (21-31); CHLORIDE 101 mmol/L (97-110); CREATININE 0.63 mg/dl (0.44-1.00); GLUCOSE 126 mg/dl (70-220); POTASSIUM 4.8 mmol/L (3.5-5.1); SODIUM 139 mmol/L (135-144); TOTAL PROTEIN 6.9 g/dl (6.1-8.1)
[2017-12-28] MEDS: SOD CHLORIDE 0.45% 1,000 ML IV (16:12)
[2017-12-29] MEDS: ACCU-CHEK XX (02:00)
[2017-12-29] MEDS: PANTOPRAZOLE (EC) 40 MG TAB PO (05:18)
[2017-12-29 05:52] LABS: ADD MAN DIFF? NO
[2017-12-29 05:58] LABS: ABNORMAL IP MESSAGE 1; BASOPHIL # 0.1 10^3/ul (0.0-0.1); BASOPHILS % 0.9 % (0.0-2.0); EOSINOPHILS # 0.2 10^3/ul (0.0-0.5); EOSINOPHILS % 1.4 % (0.0-7.0); HEMOGLOBIN 11.2 g/dl (12.0-16.0); LYMPHOCYTES # 4.7 10^3/ul (0.8-2.9); LYMPHOCYTES % 32.1 % (15.0-51.0); MEAN CORPUSCULAR HEMOGLOBIN 28.1 pg (29.0-33.0); MEAN CORPUSCULAR HGB CONC 31.1 g/dl (32.0-37.0); MEAN CORPUSCULAR VOLUME 90.2 fl (82.0-101.0); MEAN PLATELET VOLUME 10.3 fl (7.4-10.4); MONOCYTE # 1.5 10^3/ul (0.3-0.9); MONOCYTES % 10.5 % (0.0-11.0); NEUTROPHIL # 7.9 10^3/ul (1.6-7.5); NEUTROPHILS % 54.8 % (39.0-77.0); PLATELET COUNT 337 10^3/UL (140-415); RED BLOOD COUNT 3.99 10^6/ul (4.20-5.40); RED CELL DISTRIBUTION WIDTH 14.6 % (11.5-14.5)
[2017-12-29 05:58] LABS: WHITE BLOOD COUNT 14.5 10^3/ul (4.8-10.8)
[2017-12-29 06:15] LABS: POSITIVE DIFF @See below
[2017-12-29] MEDS: HYDROCODONE/APAP (5/325) TAB PO ×3 (06:57→20:41)
[2017-12-29 07:05] LABS: ALANINE AMINOTRANSFERASE 26 IU/L (13-69); ALBUMIN 3.3 g/dl (3.3-4.9); ALBUMIN/GLOBULIN RATIO 0.84; ALKALINE PHOSPHATASE 468 IU/L (42-121); ANION GAP 14 (8-16); ASPARTATE AMINO TRANSFERASE 31 IU/L (15-46); BILIRUBIN,INDIRECT 0.3 mg/dl (0-1.1); BILIRUBIN,TOTAL 0.3 mg/dl (0.2-1.3); BLOOD UREA NITROGEN 12 mg/dl (7-20); CALCIUM 9.2 mg/dl (8.4-10.2); CARBON DIOXIDE 26 mmol/L (21-31); CHLORIDE 102 mmol/L (97-110); CREATININE 0.69 mg/dl (0.44-1.00); GLUCOSE 130 mg/dl (70-220); POTASSIUM 4.7 mmol/L (3.5-5.1); SODIUM 137 mmol/L (135-144); TOTAL PROTEIN 7.2 g/dl (6.1-8.1)
[2017-12-29] MEDS: INSULIN ASPART [NOVOLOG] 3 ML PEN SC ×4 (08:00→20:41)
[2017-12-29] MEDS: MAGNESIUM HYDROXIDE 30ML CUP PO ×2 (09:00→09:18)
[2017-12-29] MEDS: CEFEPIME 2GM/50 ML (PMX) 50 ML IVPB ×2 (09:13→20:41)
[2017-12-29] MEDS: FOLIC ACID 1 MG TAB PO (09:18)
[2017-12-29] MEDS: FERROUS SULFATE (EC) 325 MG TAB PO ×2 (09:18→20:41)
[2017-12-29] MEDS: POTASSIUM CHLORIDE (SR) 20 MEQ TAB PO (09:18)
[2017-12-29] MEDS: GABAPENTIN 300 MG CAP PO ×3 (09:18→22:01)
[2017-12-29] MEDS: SOD CHLORIDE 0.45% 1,000 ML IV (09:49)
[2017-12-30] MEDS: ACCU-CHEK XX (02:00)
[2017-12-30] MEDS: SOD CHLORIDE 0.45% 1,000 ML IV ×2 (03:45→21:54)
[2017-12-30] MEDS: PANTOPRAZOLE (EC) 40 MG TAB PO (05:42)
[2017-12-30] MEDS: INSULIN ASPART [NOVOLOG] 3 ML PEN SC ×4 (07:51→20:20)
[2017-12-30] MEDS: HYDROCODONE/APAP (5/325) TAB PO (08:55)
[2017-12-30] MEDS: FOLIC ACID 1 MG TAB PO (08:58)
[2017-12-30] MEDS: GABAPENTIN 300 MG CAP PO ×4 (08:59→20:20)
[2017-12-30] MEDS: POTASSIUM CHLORIDE (SR) 20 MEQ TAB PO (08:59)
[2017-12-30] MEDS: FERROUS SULFATE (EC) 325 MG TAB PO ×2 (08:59→20:20)
[2017-12-30] MEDS: MAGNESIUM HYDROXIDE 30ML CUP PO (09:00)
[2017-12-30] MEDS: CEFEPIME 2GM/50 ML (PMX) 50 ML IVPB ×2 (09:03→20:20)
[2017-12-31] MEDS: HYDROCODONE/APAP (5/325) TAB PO ×2 (00:54→09:20)
[2017-12-31] MEDS: ACCU-CHEK XX (02:00)
[2017-12-31] MEDS: PANTOPRAZOLE (EC) 40 MG TAB PO (05:46)
[2017-12-31 06:10] LABS: ADD MAN DIFF? NO
[2017-12-31 06:17] LABS: WHITE BLOOD COUNT 9.9 10^3/ul (4.8-10.8)
[2017-12-31 06:17] LABS: BASOPHIL # 0.1 10^3/ul (0.0-0.1); BASOPHILS % 0.8 % (0.0-2.0); EOSINOPHILS # 0.3 10^3/ul (0.0-0.5); EOSINOPHILS % 2.8 % (0.0-7.0); HEMOGLOBIN 11.5 g/dl (12.0-16.0); LYMPHOCYTES # 4.7 10^3/ul (0.8-2.9); LYMPHOCYTES % 47.1 % (15.0-51.0); MEAN CORPUSCULAR HEMOGLOBIN 27.6 pg (29.0-33.0); MEAN CORPUSCULAR HGB CONC 30.3 g/dl (32.0-37.0); MEAN CORPUSCULAR VOLUME 91.3 fl (82.0-101.0); MEAN PLATELET VOLUME 10.3 fl (7.4-10.4); MONOCYTES % 9.6 % (0.0-11.0); NEUTROPHIL # 3.9 10^3/ul (1.6-7.5); NEUTROPHILS % 39.3 % (39.0-77.0); PLATELET COUNT 380 10^3/UL (140-415); RED BLOOD COUNT 4.16 10^6/ul (4.20-5.40)
[2017-12-31 07:06] LABS: ANION GAP 14 (8-16); BLOOD UREA NITROGEN 12 mg/dl (7-20); CALCIUM 9.4 mg/dl (8.4-10.2); CARBON DIOXIDE 28 mmol/L (21-31); CHLORIDE 104 mmol/L (97-110); CREATININE 0.74 mg/dl (0.44-1.00); GLUCOSE 125 mg/dl (70-220); POTASSIUM 4.9 mmol/L (3.5-5.1); SODIUM 141 mmol/L (135-144)
[2017-12-31] MEDS: INSULIN ASPART [NOVOLOG] 3 ML PEN SC ×4 (08:00→21:00)
[2017-12-31] MEDS: GABAPENTIN 300 MG CAP PO ×3 (08:23→20:50)
[2017-12-31] MEDS: FOLIC ACID 1 MG TAB PO (08:24)
[2017-12-31] MEDS: POTASSIUM CHLORIDE (SR) 20 MEQ TAB PO (08:24)
[2017-12-31] MEDS: MAGNESIUM HYDROXIDE 30ML CUP PO ×2 (08:24→08:31)
[2017-12-31] MEDS: FERROUS SULFATE (EC) 325 MG TAB PO ×2 (08:24→20:49)
[2017-12-31] MEDS: CEFEPIME 2GM/50 ML (PMX) 50 ML IVPB ×2 (08:27→20:49)
[2017-12-31] MEDS: SOD CHLORIDE 0.45% 1,000 ML IV (14:56)
[2017-12-31 16:59] LABS: ALANINE AMINOTRANSFERASE 25 IU/L (13-69); ALBUMIN 3.6 g/dl (3.3-4.9); ALKALINE PHOSPHATASE 593 IU/L (42-121); ANION GAP 16 (8-16); ASPARTATE AMINO TRANSFERASE 56 IU/L (15-46); BILIRUBIN,INDIRECT 0.1 mg/dl (0-1.1); BILIRUBIN,TOTAL 0.1 mg/dl (0.2-1.3); BLOOD UREA NITROGEN 11 mg/dl (7-20); CALCIUM 9.6 mg/dl (8.4-10.2); CARBON DIOXIDE 28 mmol/L (21-31); CHLORIDE 102 mmol/L (97-110); CREATININE 0.69 mg/dl (0.44-1.00); GLUCOSE 127 mg/dl (70-220); POTASSIUM 5.6 mmol/L (3.5-5.1); SODIUM 140 mmol/L (135-144); TOTAL PROTEIN 8.1 g/dl (6.1-8.1)
[2017-12-31] MEDS: NA POLYST SULFON 15 GM/60 ML BTL PO (18:49)
[2018-01-01] MEDS: ACCU-CHEK XX (02:00)
[2018-01-01] MEDS: PANTOPRAZOLE (EC) 40 MG TAB PO (05:17)
[2018-01-01 05:39] LABS: ADD MAN DIFF? NO
[2018-01-01 05:47] LABS: WHITE BLOOD COUNT 9.7 10^3/ul (4.8-10.8)
[2018-01-01 05:47] LABS: BASOPHIL # 0.1 10^3/ul (0.0-0.1); BASOPHILS % 1.1 % (0.0-2.0); EOSINOPHILS # 0.3 10^3/ul (0.0-0.5); HEMATOCRIT 37.8 % (37.0-47.0); HEMOGLOBIN 11.6 g/dl (12.0-16.0); LYMPHOCYTES # 4.6 10^3/ul (0.8-2.9); LYMPHOCYTES % 47.3 % (15.0-51.0); MEAN CORPUSCULAR HEMOGLOBIN 27.6 pg (29.0-33.0); MEAN CORPUSCULAR HGB CONC 30.7 g/dl (32.0-37.0); MONOCYTE # 0.9 10^3/ul (0.3-0.9); MONOCYTES % 8.8 % (0.0-11.0); NEUTROPHIL # 3.8 10^3/ul (1.6-7.5); NEUTROPHILS % 39.4 % (39.0-77.0); PLATELET COUNT 383 10^3/UL (140-415)
[2018-01-01 06:05] LABS: ANION GAP 15 (8-16); BLOOD UREA NITROGEN 10 mg/dl (7-20); CALCIUM 9.3 mg/dl (8.4-10.2); CARBON DIOXIDE 27 mmol/L (21-31); CHLORIDE 103 mmol/L (97-110); CREATININE 0.71 mg/dl (0.44-1.00); GLUCOSE 137 mg/dl (70-220); POTASSIUM 4.3 mmol/L (3.5-5.1); SODIUM 141 mmol/L (135-144)
[2018-01-01] MEDS: INSULIN ASPART [NOVOLOG] 3 ML PEN SC ×4 (08:00→21:00)
[2018-01-01] MEDS: SOD CHLORIDE 0.45% 1,000 ML IV (08:13)
[2018-01-01] MEDS: CEFEPIME 2GM/50 ML (PMX) 50 ML IVPB ×2 (08:44→21:33)
[2018-01-01] MEDS: FOLIC ACID 1 MG TAB PO (08:46)
[2018-01-01] MEDS: MAGNESIUM HYDROXIDE 30ML CUP PO (08:46)
[2018-01-01] MEDS: FERROUS SULFATE (EC) 325 MG TAB PO ×2 (08:46→21:33)
[2018-01-01] MEDS: GABAPENTIN 300 MG CAP PO ×3 (08:47→21:33)
[2018-01-01] MEDS: IOHEXOL 300MG/ML 30 ML BTL (12:30)
[2018-01-02] MEDS: ACCU-CHEK XX (02:00)
[2018-01-02] MEDS: SOD CHLORIDE 0.45% 1,000 ML IV ×2 (03:28→16:30)
[2018-01-02] MEDS: PANTOPRAZOLE (EC) 40 MG TAB PO (05:43)
[2018-01-02 06:32] LABS: ADD MAN DIFF? NO
[2018-01-02 06:47] LABS: WHITE BLOOD COUNT 9.3 10^3/ul (4.8-10.8)
[2018-01-02 06:47] LABS: BASOPHIL # 0.1 10^3/ul (0.0-0.1); BASOPHILS % 1.2 % (0.0-2.0); EOSINOPHILS # 0.3 10^3/ul (0.0-0.5); HEMATOCRIT 35.6 % (37.0-47.0); HEMOGLOBIN 11.1 g/dl (12.0-16.0); LYMPHOCYTES # 3.9 10^3/ul (0.8-2.9); LYMPHOCYTES % 42.4 % (15.0-51.0); MEAN CORPUSCULAR HEMOGLOBIN 27.9 pg (29.0-33.0); MEAN CORPUSCULAR HGB CONC 31.2 g/dl (32.0-37.0); MEAN CORPUSCULAR VOLUME 89.4 fl (82.0-101.0); MEAN PLATELET VOLUME 10.3 fl (7.4-10.4); MONOCYTE # 0.9 10^3/ul (0.3-0.9); MONOCYTES % 9.5 % (0.0-11.0); NEUTROPHILS % 43.5 % (39.0-77.0); PLATELET COUNT 371 10^3/UL (140-415); RED BLOOD COUNT 3.98 10^6/ul (4.20-5.40); RED CELL DISTRIBUTION WIDTH 14.3 % (11.5-14.5)
[2018-01-02 07:03] LABS: ANION GAP 15 (8-16); BLOOD UREA NITROGEN 11 mg/dl (7-20); CALCIUM 9.3 mg/dl (8.4-10.2); CARBON DIOXIDE 28 mmol/L (21-31); CHLORIDE 105 mmol/L (97-110); CREATININE 0.67 mg/dl (0.44-1.00); GLUCOSE 139 mg/dl (70-220); POTASSIUM 3.5 mmol/L (3.5-5.1); SODIUM 144 mmol/L (135-144)
[2018-01-02] MEDS: INSULIN ASPART [NOVOLOG] 3 ML PEN SC ×4 (08:00→20:33)
[2018-01-02] MEDS: MAGNESIUM HYDROXIDE 30ML CUP PO (08:50)
[2018-01-02] MEDS: FERROUS SULFATE (EC) 325 MG TAB PO ×2 (08:50→20:30)
[2018-01-02] MEDS: GABAPENTIN 300 MG CAP PO ×3 (08:50→20:30)
[2018-01-02] MEDS: CEFEPIME 2GM/50 ML (PMX) 50 ML IVPB (08:50)
[2018-01-02] MEDS: FOLIC ACID 1 MG TAB PO (08:50)
[2018-01-02] MEDS: HYDROCODONE/APAP (5/325) TAB PO (21:17)
== END 2018-01-02 21:51 | DRG 435 ==
LOC: PP2 12-22 22:35 → E/R 18:40 → PP2 20:27
PROC: 0F768DZ Dilation of Left Hepatic Duct with Intraluminal Device, Via Natural or Artificial Opening Endoscopic (ICD-10-PCS; principal; 2017-12-19 12:30)
PROC: 0FPB8DZ Removal of Intraluminal Device from Hepatobiliary Duct, Via Natural or Artificial Opening Endoscopic (ICD-10-PCS; 2017-12-19 12:30)
PROC: BF10YZZ Fluoroscopy of Bile Ducts using Other Contrast (ICD-10-PCS; 2017-12-19 12:30)
PROC: 0F9430Z Drainage of Gallbladder with Drainage Device, Percutaneous Approach (ICD-10-PCS; 2017-12-19 13:02)
PROC: BW111ZZ Fluoroscopy of Abdomen and Pelvis using Low Osmolar Contrast (ICD-10-PCS; 2017-12-19 13:02)
DX: C22.1 Intrahepatic bile duct carcinoma (principal); J18.9 Pneumonia, unspecified organism; K83.1 Obstruction of bile duct; T82.514A Breakdown (mechanical) of infusion catheter, initial encounter; K81.9 Cholecystitis, unspecified; D64.9 Anemia, unspecified; E11.9 Type 2 diabetes mellitus without complications; I10 Essential (primary) hypertension; E78.5 Hyperlipidemia, unspecified; I25.10 Atherosclerotic heart disease of native coronary artery without angina pectoris; Z87.891 Personal history of nicotine dependence; Q27.8 Other specified congenital malformations of peripheral vascular system; D17.79 Benign lipomatous neoplasm of other sites
CPT/HCPCS: 36415; 71045; 74178; 74181; 74330; 76080; 76705; 77012; 80048; 80053; 80202; 81001; 82105; 82378; 82565; 82962; 83036; 83605; 83690; 83735; 84100; 84484; 84520; 85025; 85610; 85730; 86301; 86304; 87040; 87070; 87075; 87081; 87086; 87400; 88104; 88300; 88305; 93005; 96365; 96366; 96368; 99291-25

== ENCOUNTER 2018-01-23 14:29 | Outpatient (CLI) | payer MEDICARE, OTHER | END 2018-01-23 15:56 | disposition home or self-care (01) | LOC: HPC 14:29 | DX: N17.9 Acute kidney failure, unspecified (principal); E11.9 Type 2 diabetes mellitus without complications; I10 Essential (primary) hypertension; D64.9 Anemia, unspecified; D17.9 Benign lipomatous neoplasm, unspecified; N13.2 Hydronephrosis with renal and ureteral calculous obstruction; K57.90 Diverticulosis of intestine, part unspecified, without perforation or abscess without bleeding; Z99.2 Dependence on renal dialysis | CPT/HCPCS: G0463 ==

== ENCOUNTER 2018-02-04 09:24 | Day surgery (SDC) | payer OTHER, MEDICARE ==
[2018-02-04] MEDS ORDERED: CIPROFLOXACIN 400 MG in D5W 200 ML IVPB (11:30)
[2018-02-04] MEDS ORDERED: INDOMETHACIN 50 MG SUPP PR (11:30)
[2018-02-04] MEDS ORDERED: IOHEXOL 300MG/ML 30 ML BTL (13:18)
[2018-02-04] MEDS ORDERED: FENTAnyl 50 MCG/ML VIAL (13:26)
[2018-02-04] MEDS ORDERED: ETOMIDATE 20 MG INJ (13:48)
[2018-02-04] MEDS ORDERED: ROCURONIUM 50 MG INJ (13:49)
[2018-02-04] MEDS ORDERED: ONDANSETRON 4 MG INJ (13:49)
[2018-02-04] MEDS ORDERED: DEXAMETHASONE 4 MG/ML 1 ML INJ (13:49)
[2018-02-04] MEDS ORDERED: CIPROFLOXACIN 400MG/D5W 200 ML (13:49)
[2018-02-04] MEDS ORDERED: SUGAMMADEX SODIUM 200 MG/2 ML VIAL IV (14:12)
[2018-02-04] MEDS ORDERED: hydrALAzine 20 MG INJ IV (14:30)
[2018-02-04] MEDS ORDERED: ALBUTEROL 0.083% (NEB) 2.5 MG/3 ML AMP HHN (14:30)
[2018-02-04] MEDS ORDERED: MEPERIDINE 25 MG INJ IV (14:30)
[2018-02-04] MEDS ORDERED: KETOROLAC 30 MG INJ IV (14:30)
[2018-02-04] MEDS ORDERED: LABETALOL HCL 20MG INJ IV (14:30)
[2018-02-04] MEDS ORDERED: EPHEDrine SULFATE 50 MG/5 ML SYG IV (14:30)
[2018-02-04] MEDS ORDERED: HYDROmorphONE (0.2 MG/ML) 10ML SYG IV ×2 (14:30)
[2018-02-04] MEDS ORDERED: ONDANSETRON 4 MG INJ IV (14:30)
[2018-02-04] MEDS ORDERED: OXYCODONE/ACETAMINOPHEN (5/325) TAB PO (14:30)
[2018-02-04] MEDS ORDERED: METOCLOPRAMIDE 10 MG INJ IV (14:30)
== END 2018-02-04 16:30 | disposition home or self-care (01) ==
LOC: GIL 09:24 → SDS 09:24 → GIL 16:30
DX: C22.1 Intrahepatic bile duct carcinoma (principal); K83.1 Obstruction of bile duct; I10 Essential (primary) hypertension; E11.9 Type 2 diabetes mellitus without complications; E78.5 Hyperlipidemia, unspecified
CPT/HCPCS: 43276; 74330; 82962